=== PATIENT | female | born 1945 | race Caucasian/White ===

== ENCOUNTER 2018-02-26 09:38 | Inpatient (IN) | payer MEDICARE ==
--- NOTE | 2018-02-26 10:01 | Emergency Department Record ---
History of Present Illness - General Chief Complaint: Arrythmia/Palpitations Stated Complaint: SOB Time Seen by Provider: 02/26/18 09:54 Source: Patient Mode of Arrival: Ambulatory Limitations: No limitations - History of Present Illness Initial Comments: The patient is here due to progressively increasing SOB and LERMA for the last 2 weeks. She has been up [place] for the summer and was admitted to the hospital for CHF 2 months ago. She has been having worsening SOB during the summer and it has gotten very bad this last 2 weeks. There has been a cough with no sputum but no CP or chest discomfort. The patient did have an episode of new onset Afib this summer also and now is on Eliquis. She denies any leg pain, swelling, or fevers. Onset/Timin -: Week(s) Arrythmia History: Atrial fibrillation Associated Symptoms: Cough, Shortness of breath - Related Data Home Medications Medication Instructions Recorded Confirmed Last Taken Apixaban [Eliquis] 5 mg PO BID 02/26/18 02/26/18 1 Day Ago ~02/25/18 Aspirin [Aspirin EC] 81 mg PO DAILY 02/26/18 02/26/18 1 Day Ago ~02/25/18 Atorvastatin Calcium 20 mg PO DAILY 02/26/18 02/26/18 1 Day Ago ~02/25/18 B-Complex with Vitamin C [Super B 1 each PO DAILY 02/26/18 02/26/18 1 Day Ago Complex-Vitamin C] ~02/25/18 Cholecalciferol (Vitamin D3) 2,000 unit PO DAILY 02/26/18 02/26/18 1 Day Ago [Vitamin D3] ~02/25/18 Citalopram Hydrobromide 20 mg PO DAILY 02/26/18 02/26/18 1 Day Ago [Citalopram HBr] ~02/25/18 Diltiazem HCl [Diltiazem ER] 240 mg PO DAILY 02/26/18 02/26/18 1 Day Ago ~02/25/18 Fish Oil/Dha/Epa [Fish Oil 1,200 1 each PO DAILY 02/26/18 02/26/18 1 Day Ago mg Fish Oil] ~02/25/18 Furosemide [Lasix] 20 mg PO DAILY 02/26/18 02/26/18 1 Day Ago ~02/25/18 Lisinopril [Prinivil] 5 mg PO DAILY 02/26/18 02/26/18 1 Day Ago ~02/25/18 Metformin HCl [Metformin HCl ER] 500 mg PO DAILY 02/26/18 02/26/18 1 Day Ago ~02/25/18 Omeprazole 20 mg PO DAILY 02/26/18 02/26/18 1 Day Ago ~02/25/18 Sotalol HCl [Sotalol] 80 mg PO DAILY 02/26/18 02/26/18 1 Day Ago ~02/25/18 Turmeric/Turmeric Root Extract 1 each PO DAILY 02/26/18 02/26/18 1 Day Ago [Turmeric 450-50 mg Capsule] ~02/25/18 Allergies Allergy/AdvReac Type Severity Reaction Status Date / Time No Known Drug Allergies Allergy Verified 02/26/18 09:52 Travel Screening - Travel/Exposure Within Last 30 Days Have you traveled within the last 30 days?: No - Travel/Exposure Within Last Year Have you traveled outside the [place] in the last year?: No - Additonal Travel Details Have you been exposed to anyone with a communicable illness?: No - Travel Symptoms Symptom Screening: None Review of Systems Constitutional: Denies: Chills, Fever Eyes: Denies: Eye discharge ENT: Denies: Congestion Respiratory: Reports: Cough, Dyspnea. Denies: Hemoptysis, Stridor, Wheezes Cardiovascular: Reports: Dyspnea on exertion. Denies: Chest pain Endocrine: Denies: Fatigue Gastrointestinal: Denies: Diarrhea, Vomiting Musculoskeletal: Denies: Arthralgia Past Medical History - SOCIAL HISTORY Smoking Status: Former smoker Alcohol Use: None Drug Use: None - RESPIRATORY Hx Respiratory Disorders: Yes Hx COPD: Yes Hx Sleep Apnea: Yes Hx of CPAP: Yes - CARDIOVASCULAR Hx Cardio Disorders: Yes Hx Cardiac Cath: Yes Hx Chest Pain: Yes (2014 (pericarditis)->diltiazem) Hx Hypertension: Yes Hx Coronary Artery Disease: Yes Hx Coronary Stent: Yes () Comment:: high cholesterol, right sided HF, pumonary hypertension - NEURO Hx Neuro Disorders: Yes Hx TIA: Yes - GI Hx GI Disorders: Yes Hx Reflux: Yes (1 year (epigastric pain)) - Hx Genitourinary Disorders: No - ENDOCRINE Hx Endocrine Disorders: Yes - MUSCULOSKELETAL Hx Musculoskeletal Disorders: Yes Hx Arthritis: Yes - PSYCH Hx Psych Problems: Yes Hx Anxiety: Yes Hx Depression: Yes - HEMATOLOGY/ONCOLOGY Hx Hematology/Oncology Disorders: Yes Hx Cancer: Yes (cervical and skin) Hx Chemotherapy: No Hx Radiation Therapy: No Family Medical History Any Significant Family History?: Yes Hx Heart Disease: Father, Brother/Sister, Grandparents *Heart Comment: in early 50's, stents, AAA, valve replacement Hx HTN: Father, Brother/Sister, Grandparents Hx Stroke: Brother/Sister Physical Exam - General General Appearance: Alert, Oriented x3, Cooperative, No acute distress - Head Head exam: Atraumatic, Normocephalic, Normal inspection - Eye Eye exam: Normal appearance, PERRL, EOMI - ENT Throat exam: Normal inspection. negative: Tonsillar erythema, Tonsillar exudate - Neck Neck exam: Normal inspection, Full ROM. negative: Tenderness - Respiratory Respiratory exam: Normal lung sounds bilaterally. negative: Respiratory distress - Cardiovascular Cardiovascular Exam: Regular rate, Normal rhythm, Normal heart sounds - GI/Abdominal GI/Abdominal exam: Soft, Normal bowel sounds. negative: Tenderness - Extremities Extremities exam: Normal inspection, Full ROM, Normal capillary refill. negative: Calf tenderness, Pedal edema, Tenderness - Neurological Neurological exam: Alert, Normal gait. negative: Abnormal gait, Motor sensory deficit - Skin Skin exam: negative: Rash Course Vital Signs 02/26/18 09:40 Temperature 98.4 F Pulse Rate 68 Respiratory 32 H Rate Blood Pressure 149/65 Pulse Ox 91 L - Reevaluation(s) Reevaluation #1: The patient is doing better at this time. She denies any CP or SOB. I did explain the results of her tests to her and due to the fact the LERMA is so severe and she is significantly anemic I did recommend hospital admission and the patient agrees. I then did discuss the case with Dr. Jeffery and he does accept the admission. 02/26/18 11:02 Medical Decision Making - Data Complexity MDM Data: Labs Ordered and/or Reviewed, X-Ray Ordered and/or Reviewed, EKG Ordered and/or Reviewed - Lab Data Result diagrams: 02/26/18 10:07 02/26/18 10:07 - EKG Data -: EKG Interpreted by Me EKG: No Acute Changes, Normal EKG - Radiology Data Radiology results: Report reviewed (CXR: COPD with possibly mild CHF.) Disposition Disposition: Admit Clinical Impression: CHF (congestive heart failure) Qualifiers: Heart failure type: unspecified Heart failure chronicity: unspecified Qualified Code(s): I50.9 - Heart failure, unspecified Disposition: Still a Patient at [facility] Decision to Admit: Admit from ER Decision to Admit Date: 02/26/18 Decision to Admit Time: 11:05 Accepting Physician: Latia Time Discussed w/Accepting Physician: 11:05 Condition: (2) Stable Forms: Patient Portal Access Time of Disposition: 11:05 Quality - Quality Measures Quality Measures: N/A - Blood Pressure Screening View Details: Yes Does Patient Have Any of the Following: Active Dx of HTN Blood Pressure Classification: Hypertensive Reading Systolic Measurement: 149 Diastolic Measurement: 65 Screening for High Blood Pressure: Patient Exclusion, Hx of HTN [[id number]]
[2018-02-26 10:17] LABS: BASO % 0.3 % (0-6); EOS % 2.1 % (0-6); HEMATOCRIT 30.7 % (35.0-47.0); HEMOGLOBIN 9.1 gm/dl (11.6-16.0); LYMPH % 32.2 % (16-45); MEAN CORPUSCULAR HEMOGLOBIN 26.3 pg (27-33); MEAN CORPUSCULAR HGB CONC 29.6 g/dl (32-36); MEAN PLATELET VOLUME 8.9 fl (7.4-10.4); MONO % 9.4 % (0-9); PLATELET COUNT 315 K/uL (130-400); RED BLOOD COUNT 3.45 M/uL (3.80-5.40); RED CELL DISTRIBUTION WIDTH 15.2 % (11.5-14.5); WHITE BLOOD COUNT W/O DIFF 7.1 K/uL (4.2-12.2)
[2018-02-26 10:24] LABS: BLOOD UREA NITROGEN 14 mg/dL (8-23); CREATININE 0.7 mg/dL (0.5-0.9); EST GLOMERULAR FILTRATION RATE > 60 mL/min
[2018-02-26 10:25] LABS: INR 1.1; PARTIAL THROMBOPLASTIN TIME 31.3 SECONDS (24.5-39.1); PROTHROMBIN TIME (PATIENT) 10.7 SECONDS (9.5-12.1)
[2018-02-26 10:26] LABS: GLUCOSE,RANDOM 145 mg/dL (74-109)
[2018-02-26 10:29] LABS: CREATINE PHOSPHOKINASE 40 U/L (26-192)
[2018-02-26 10:31] LABS: CKMB < 1.0 ng/mL (<3.77)
[2018-02-26] MEDS ORDERED: FUROSEMIDE IV 40MG/4ML VIAL IVP ONE (10:49)
[2018-02-26] MEDS ORDERED: ALBUTEROL SULFATE (0.083%) 2.5 MG/3 ML NEB INH PRN (12:37)
--- NOTE | 2018-02-26 12:39 | History & Physical ---
History of Present Illness - Date of Service Date of Service for History & Physical: 02/26/18 - History of Present Illness Admitting Diagnosis: 1. Acute CHF with Anemia History of Present Illness: Mrs. Gonzalez is a 73 y/o female with recent diagnosis of atrial fibrillation s/p cardioversion, heart failure and COPD. The patient [place] and while there she became progressively short of breath and noticed some swelling in her legs. She says that she was admitted to a hospital for several days and was started on medication but she is not sure of all of them. The patient says that she has a history of COPD but had not been on medication for it. She has a 40 pack year smoking history and quit about 5 years ago. Since returning home over the weekend the patient says that she again became very short of breath, especially with exertion and she had some mild swelling of her legs. She says that she has diastolic heart failure and pulmonary hypertension based on the echo that was done several weeks ago. She presented to her PCPs office today and was reportedly in atrial fibrillation and sent to the ED. On arrival to [facility] ED the patient's chest xray does showed evidence of congestion and was found to have a hemoglobin of 9.1 but was not in atrial fibrillation on EKG. She denies chest pain, headache, cough, fever or chills. The patient is admitted for diuresis, repeat labs and further cardiac workup. Vitals on admission: BP: 124/69 HR: 66 RR: 22 T: 98.1 Sats: 98% on 2.5 liters nasal cannula PCP: Dr. Bruce Ca Travel Screening - Travel/Exposure Within Last 30 Days Have you traveled within the last 30 days?: No - Travel/Exposure Within Last Year Have you traveled outside the [place] in the last year?: No - Additonal Travel Details Have you been exposed to anyone with a communicable illness?: No - Travel Symptoms Symptom Screening: None Review of Systems Constitutional: Denies: Chills, Fever Eyes: Denies: Eye discharge ENT: Denies: Congestion Respiratory: Reports: Cough, Dyspnea. Denies: Hemoptysis, Stridor, Wheezes Cardiovascular: Reports: Dyspnea on exertion. Denies: Chest pain Endocrine: Denies: Fatigue Gastrointestinal: Denies: Diarrhea, Vomiting Musculoskeletal: Denies: Arthralgia Past Medical History - SOCIAL HISTORY Smoking Status: Former smoker Alcohol Use: None Drug Use: None - RESPIRATORY Hx Respiratory Disorders: Yes Hx COPD: Yes Hx Sleep Apnea: Yes Hx of CPAP: Yes - CARDIOVASCULAR Hx Cardio Disorders: Yes Hx Cardiac Cath: Yes Hx Chest Pain: Yes (2014 (pericarditis)->diltiazem) Hx Hypertension: Yes Hx Coronary Artery Disease: Yes Hx Coronary Stent: Yes (2008) Comment:: high cholesterol, right sided HF, pumonary hypertension - NEURO Hx Neuro Disorders: Yes Hx TIA: Yes - GI Hx GI Disorders: Yes Hx Reflux: Yes (1 year (epigastric pain)) - Hx Genitourinary Disorders: No - ENDOCRINE Hx Endocrine Disorders: Yes - MUSCULOSKELETAL Hx Musculoskeletal Disorders: Yes Hx Arthritis: Yes - PSYCH Hx Psych Problems: Yes Hx Anxiety: Yes Hx Depression: Yes - HEMATOLOGY/ONCOLOGY Hx Hematology/Oncology Disorders: Yes Hx Cancer: Yes (cervical and skin) Hx Chemotherapy: No Hx Radiation Therapy: No Family Medical History Any Significant Family History?: Yes Hx Heart Disease: Father, Brother/Sister, Grandparents *Heart Comment: in early 50's, stents, AAA, valve replacement Hx HTN: Father, Brother/Sister, Grandparents Hx Stroke: Brother/Sister H&P Meds/Allergies - Allergies Allergies: Allergies Allergy/AdvReac Type Severity Reaction Status Date / Time No Known Drug Allergies Allergy Verified 02/26/18 09:52 - Home Medications Home Medications Medication Instructions Recorded Confirmed Last Taken Albuterol Sulfate [Proair Hfa] 2 puff IH Q4H PRN 02/26/18 02/26/18 Unknown Apixaban [Eliquis] 5 mg PO BID 02/26/18 02/26/18 1 Day Ago ~02/25/18 Aspirin [Aspirin EC] 81 mg PO QHS 02/26/18 02/26/18 1 Day Ago ~02/25/18 Atorvastatin Calcium 20 mg PO DAILY 02/26/18 02/26/18 1 Day Ago ~02/25/18 B-Complex with Vitamin C [Super B 1 each PO DAILY 02/26/18 02/26/18 1 Day Ago Complex-Vitamin C] ~02/25/18 Cholecalciferol (Vitamin D3) 2,000 unit PO DAILY 02/26/18 02/26/18 1 Day Ago [Vitamin D3] ~02/25/18 Citalopram Hydrobromide 20 mg PO DAILY 02/26/18 02/26/18 1 Day Ago [Citalopram HBr] ~02/25/18 Diltiazem HCl [Diltiazem ER] 240 mg PO DAILY 02/26/18 02/26/18 1 Day Ago ~02/25/18 Fish Oil/Dha/Epa [Fish Oil 1,200 1 each PO DAILY 02/26/18 02/26/18 1 Day Ago mg Fish Oil] ~02/25/18 Furosemide [Lasix] 20 mg PO DAILY 02/26/18 02/26/18 1 Day Ago ~02/25/18 Lisinopril [Prinivil] 5 mg PO DAILY 02/26/18 02/26/18 1 Day Ago ~02/25/18 Metformin HCl 500 mg PO QHS 02/26/18 02/26/18 Unknown Omeprazole 20 mg PO DAILY 02/26/18 02/26/18 1 Day Ago ~02/25/18 Sotalol HCl [Sotalol] 80 mg PO BID 02/26/18 02/26/18 1 Day Ago ~02/25/18 Tiotropium [place] [Spiriva] 1 cap IH DAILY 02/26/18 02/26/18 Unknown Turmeric/Turmeric Root Extract 1 each PO DAILY 02/26/18 02/26/18 1 Day Ago [Turmeric 450-50 mg Capsule] ~02/25/18 - Active Medications Active Medications: Current Medications Albuterol Sulfate () 2.5 mg INH RESP.Q4H.WA PRN PRN Reason: DIFFICULTY IN BREATHING Aspirin (Ecotrin (Ec)) 81 mg PO DAILY [facility] Atorvastatin Calcium (Lipitor) 20 mg PO DAILY [facility] Citalopram Hydrobromide (Celexa) 20 mg PO DAILY [facility] Furosemide (Lasix Iv) 40 mg IVP DAILY [facility] Lisinopril (Zestril) 5 mg PO DAILY [facility] Non-Formulary Medication (Diltiazem Hcl [Diltiazem 24hr Er]) 240 mg PO DAILY [facility] Non-Formulary Medication (Metformin Hcl [Metformin Hcl Er]) 500 mg PO DAILY [facility] Non-Formulary Medication (Omeprazole [Omeprazole]) 20 mg PO DAILY [facility] Sotalol HCl (Betapace) 80 mg PO DAILY [facility] Physical Exam - Vital Signs Vital Signs: Vital Signs - Last 24 Hrs Temp Pulse Pulse Resp BP BP Pulse Ox 02/26/18 11:56 98.1 F 69 26 H 136/70 98 02/26/18 10:53 66 22 124/69 98 02/26/18 09:40 98.4 F 68 32 H 149/65 91 L - General General Appearance: Alert, Oriented x3, Cooperative, No acute distress Limitations: No limitations - Head Head exam: Atraumatic, Normocephalic, Normal inspection - Eye Eye exam: Normal appearance, PERRL, EOMI - ENT Throat exam: Normal inspection. negative: Tonsillar erythema, Tonsillar exudate - Neck Neck exam: Normal inspection, Full ROM. negative: Tenderness - Respiratory Respiratory exam: Normal lung sounds bilaterally, Other (coarse crackles). negative: Respiratory distress - Cardiovascular Cardiovascular Exam: Regular rate, Normal rhythm, Normal heart sounds Peripheral Pulses: 2+: Dorsalis Pedis (R), Dorsalis Pedis (L), 3+: Radial (R), Radial (L) - GI/Abdominal GI/Abdominal exam: Soft, Normal bowel sounds. negative: Tenderness - Extremities Extremities exam: Normal inspection, Full ROM, Normal capillary refill. negative: Calf tenderness, Pedal edema, Tenderness - Neurological Neurological exam: Alert, Normal gait. negative: Abnormal gait, Motor sensory deficit - Skin Skin exam: negative: Rash Results - Labs Result Diagrams: 02/26/18 10:07 02/26/18 10:07 Labs Last 24 Hours: Laboratory Results - last 24 hr 02/26/18 02/26/18 02/26/18 10:07 10:07 10:07 WBC 7.1 RBC 3.45 L Hgb 9.1 L Hct 30.7 L MCV 89.0 MCH 26.3 L MCHC 29.6 L RDW 15.2 H Plt Count 315 MPV 8.9 Gran % 56.0 Lymphocytes % 32.2 Monocytes % 9.4 H Eosinophils % 2.1 Basophils % 0.3 PT 10.7 INR 1.1 APTT 31.3 Sodium 141 Potassium 3.9 Chloride 101 Carbon Dioxide 27.0 Anion Gap 13.0 BUN 14 Creatinine 0.7 Estimated GFR > 60 Random Glucose 145 H Calcium 9.0 Creatine Kinase 40 CK-MB (CK-2) < 1.0 Troponin T < 0.010 NT-Pro-B Natriuret Pep 678.00 H TSH 0.90 VTE H&P Assessment - Risk for VTE Risk for VTE: Yes Risk Level: High Risk Assessment Date: 02/26/18 Risk Assessment Time: 18:06 VTE Orders Placed or Will Be Placed: No VTE Reason for No Prophylaxis: Complication of Medical Care Plan - Inpatient Certification Inpatient Certification: Admit to inpatient care: Based on my medical assessment, after consideration of patient's risk factors (age, co-morbidities and patient presenting symptoms and acuity), I expect that this patient will remain in the hospital greater than or equal to two midnights and that the services needed warrant inpatient care because: Patient Risk Factors: CHF, COPD exacerbation Estimated length of stay: 3 days The patient may reasonably be expected to be discharged or transferred to a hospital within 96 hours after admission to [facility]. I certify that my determination is in accordance with my understanding of Medicare requirements for reasonable and necessary inpatient services. 02/26/18 18:06 - Detailed Diagnosis and Plan (1) Acute exacerbation of CHF (congestive heart failure) Current Visit: Yes Status: Acute Base Code: I50.9 - HEART FAILURE, UNSPECIFIED Comment: 02/26/18: - CXR: indicative of some pulmonary vascular congestion. diastolic vs systolic? EF? - EKG: NSR, Qtc prolongation, no acute ST-T wave changes. - Pro T BNP: 678, Troponin 0.010, serial labs pending. - Resume Lisinopril 5mg daily, ASA81 mg daily, Atorvastatin 20mg, Lasix 40mg daily. - Repeat labs: BNP, CBC w/ diff, Lipid panel ordered. Fluid restriction 2 liters daily, Strict I/Os, Sodium restricted diet. - 2D echo ordered, Cardiology consult placed. (2) Anemia Current Visit: Yes Status: Acute Base Code: D64.9 - ANEMIA, UNSPECIFIED Comment: 02/26/18: - Acute v chronic? - Hgb 9.1, repeat CBC w/diff, fecal occult blood ordered. - Hold anticoagulants for now. - Last colonoscopy 2 years ago and pt reports normal findings. (3) A-fib Current Visit: Yes Status: Acute Base Code: I48.91 - UNSPECIFIED ATRIAL FIBRILLATION Comment: 02/26/18: - chronic atrial fibrillation s/p cardioversion. - currently on Sotalol 80mg BID, Cardizem 240mg daily, anticoagulated on Eliquis 5mg BID. - EKG: NSR w, rate approx 60, prolonged Qtc, no acute changes. Troponin x 1 negative, TSH 0.90 - cardiac monitoring, 2D echo ordered. Unable to obtain echo or records from most recent admission. - cardiology consult pending. (4) COPD (chronic obstructive pulmonary disease) Current Visit: Yes Status: Acute Base Code: J44.9 - CHRONIC OBSTRUCTIVE PULMONARY DISEASE, UNSPECIFIED Comment: 02/26/18: - 40 pk/yr hx of smoking, quit 5 years ago. - CXR: chronic changes, no opacities/infiltrates, small effusions bilaterally. - resume Spiriva daily, add Albuterol nebs Q4H PRN, oxygen to maintain sats > 92 %. - influenza vaccination required - recommend PFTs on discharge. (5) Diabetes mellitus, type II Current Visit: Yes Status: Acute Base Code: E11.9 - TYPE 2 DIABETES MELLITUS WITHOUT COMPLICATIONS Comment: : - Recent diagnosis - Continue Metformin 500mg, Atorvastatin 20mg QHS, Lisinopril 5mg QD - Repeat labs, accuchecks AcHs, Hba1c ordered - ADA diet ordered. (6) DVT prophylaxis Current Visit: Yes Status: Acute Base Code: [id number] - Comment: 02/26/18: - pt on Eliquis but will hold due to Hgb drop. - fecal occult blood testing pending. (7) Full code status Current Visit: Yes Status: Acute Base Code: Z78.9 - OTHER SPECIFIED HEALTH STATUS Comment: 02/26/18: - The patient is full code
--- NOTE | 2018-02-26 13:26 | RADIOLOGY REPORT ---
EXAM: CHEST, TWO VIEWS HISTORY: DIFFICULTY IN BREATHING. TECHNIQUE: Frontal and lateral views of the chest were performed. FINDINGS: The heart size is normal. Diffuse prominence of the pulmonary interstitium. Small pleural effusions. IMPRESSION: DIFFUSE PROMINENCE OF THE PULMONARY INTERSTITIUM. SMALL PLEURAL EFFUSIONS. JOB NUMBER: [id number] MTDD
[2018-02-26] MEDS: ACETAMINOPHEN 500 MG TABLET PO PRN ×2 (14:19→23:45)
[2018-02-26] MEDS: ASPIRIN 81 MG TABEC PO SCH (21:38)
[2018-02-26] MEDS: SOTALOL HCL 80 MG TABLET PO SCH (21:38)
[2018-02-26] MEDS: METFORMIN 500 MG TABLET PO SCH (21:39)
[2018-02-27 01:24] LABS: CKMB < 1.0 ng/mL (<3.77)
[2018-02-27] MEDS ORDERED: BREO (FLUTICASONE/VILANTEROL) 200MCG/25MCG INHALER INH SCH (06:00)
[2018-02-27] MEDS: PANTOPRAZOLE SODIUM 40 MG TABLET PO SCH (06:45)
[2018-02-27 06:55] LABS: BASO % 0.4 % (0-6); GRAN % 62.1 % (47-80); HEMATOCRIT 32.7 % (35.0-47.0); HEMOGLOBIN 9.6 gm/dl (11.6-16.0); LYMPH % 25.4 % (16-45); MEAN CELL VOLUME 89.3 fl (81-97); MEAN CORPUSCULAR HEMOGLOBIN 26.2 pg (27-33); MEAN CORPUSCULAR HGB CONC 29.4 g/dl (32-36); MEAN PLATELET VOLUME 9.4 fl (7.4-10.4); MONO % 9.1 % (0-9); PLATELET COUNT 355 K/uL (130-400); RED BLOOD COUNT 3.66 M/uL (3.80-5.40); RED CELL DISTRIBUTION WIDTH 15.1 % (11.5-14.5)
[2018-02-27 07:12] LABS: BLOOD UREA NITROGEN 16 mg/dL (8-23); CREATININE 0.6 mg/dL (0.5-0.9); EST GLOMERULAR FILTRATION RATE > 60 mL/min; GLUCOSE,RANDOM 115 mg/dL (74-109)
[2018-02-27] MEDS: CITALOPRAM 20 MG TABLET PO SCH (09:11)
[2018-02-27] MEDS: ATORVASTATIN 20 MG TABLET PO SCH (09:11)
[2018-02-27] MEDS: LISINOPRIL 5 MG TABLET PO SCH (09:11)
[2018-02-27] MEDS: SOTALOL HCL 80 MG TABLET PO SCH ×2 (09:11→21:22)
[2018-02-27] MEDS: DILTIAZEM 240 MG CAP CR PO SCH (09:18)
--- NOTE | 2018-02-27 09:51 | Physician Progress Note ---
Subjective - Date Date of Physician Progress Note: 02/27/18 - Subjective Subjective Comment: The patient is alert, awake and oriented. She still complains of shortness of breath on exertion this morning. Objective - Vital Signs Vital Signs: Vital Signs - Last 24 Hrs Temp Pulse Pulse Resp BP Pulse Ox 02/27/18 09:00 68 18 02/27/18 08:00 98.1 F 68 18 135/78 95 02/27/18 06:00 97.9 F 85 22 129/84 95 02/27/18 00:03 81 20 95 02/26/18 21:00 87 20 02/26/18 20:00 97.6 F 70 20 127/68 95 02/26/18 17:05 98.2 F 72 18 145/77 99 02/26/18 15:15 72 L 02/26/18 14:25 80 16 02/26/18 12:15 98.1 F 69 22 148/69 95 02/26/18 11:56 98.1 F 69 26 H 136/70 98 02/26/18 10:53 66 22 124/69 98 - General General Appearance: Alert, Oriented x3, Cooperative, No acute distress Limitations: No limitations - Head Head exam: Atraumatic, Normocephalic, Normal inspection - Eye Eye exam: Normal appearance, PERRL, EOMI - ENT Throat exam: Normal inspection. negative: Tonsillar erythema, Tonsillar exudate - Neck Neck exam: Normal inspection, Full ROM. negative: Tenderness - Respiratory Respiratory exam: Normal lung sounds bilaterally, Other (diminished breaths at the bases, no crackles this morning. ). negative: Respiratory distress - Cardiovascular Cardiovascular Exam: Regular rate, Normal rhythm, Normal heart sounds Peripheral Pulses: 2+: Dorsalis Pedis (R), Dorsalis Pedis (L), 3+: Radial (R), Radial (L) - GI/Abdominal GI/Abdominal exam: Soft, Normal bowel sounds. negative: Tenderness - Extremities Extremities exam: Normal inspection, Full ROM, Normal capillary refill. negative: Calf tenderness, Pedal edema, Tenderness - Neurological Neurological exam: Alert, Normal gait. negative: Abnormal gait, Motor sensory deficit - Skin Skin exam: negative: Rash Assessment and Plan - Assessment and Plan (1) Acute exacerbation of CHF (congestive heart failure) Current Visit: Yes Status: Acute Base Code: I50.9 - HEART FAILURE, UNSPECIFIED Comment: 02/27/18: - CXR: indicative of some pulmonary vascular congestion. diastolic vs systolic? EF? - EKG: NSR, Qtc prolongation, no acute ST-T wave changes. - Pro T BNP: 678, Troponin negative x 2, - Resume Lisinopril 5mg daily, ASA81 mg daily, Atorvastatin 20mg, Lasix 40mg daily. - Repeat labs: BNP, CBC w/ diff, Lipid panel ordered. Fluid restriction 2 liters daily, Strict I/Os, Sodium restricted diet. - 2D echo ordered, Cardiology consult pending. Requesting records from [facility]. (2) Anemia Current Visit: Yes Status: Acute Base Code: D64.9 - ANEMIA, UNSPECIFIED Comment: 02/27/18: - Acute v chronic? - Hgb 9.1-->9.6, repeat CBC w/diff, fecal occult blood ordered. - Hold anticoagulants for now. - Last colonoscopy 2 years ago and pt reports normal findings. (3) A-fib Current Visit: Yes Status: Acute Base Code: I48.91 - UNSPECIFIED ATRIAL FIBRILLATION Comment: 02/26/18: - chronic atrial fibrillation s/p cardioversion. - currently on Sotalol 80mg BID, Cardizem 240mg daily, anticoagulated on Eliquis 5mg BID. - EKG: NSR w, rate approx 60, prolonged Qtc, no acute changes. Troponin x 1 negative, TSH 0.90 - cardiac monitoring, 2D echo ordered. Unable to obtain echo or records from most recent admission. - cardiology consult pending. (4) COPD (chronic obstructive pulmonary disease) Current Visit: Yes Status: Acute Base Code: J44.9 - CHRONIC OBSTRUCTIVE PULMONARY DISEASE, UNSPECIFIED Comment: 02/27/18: - 40 pk/yr hx of smoking, quit 5 years ago. - CXR: chronic changes, no opacities/infiltrates, small effusions bilaterally. - resume Spiriva daily, add Albuterol nebs Q4H PRN, oxygen to maintain sats > 92 %. - influenza vaccination given. - recommend PFTs on discharge. (5) Diabetes mellitus, type II Current Visit: Yes Status: Acute Base Code: E11.9 - TYPE 2 DIABETES MELLITUS WITHOUT COMPLICATIONS Comment: : - Recent diagnosis - Continue Metformin 500mg, Atorvastatin 20mg QHS, Lisinopril 5mg QD - Repeat labs, accuchecks AcHs, Hba1c 6.1% - ADA diet ordered. (6) DVT prophylaxis Current Visit: Yes Status: Acute Base Code: [id number] - Comment: 02/27/18: - pt on Eliquis but will hold due to Hgb drop. - fecal occult blood testing pending. (7) Full code status Current Visit: Yes Status: Acute Base Code: Z78.9 - OTHER SPECIFIED HEALTH STATUS Comment: 02/27/18: - The patient is full code - Disposition Disposition: Pending Cardiology consult Results - Labs Result Diagrams: 02/27/18 06:13 02/27/18 06:13 Labs Last 24 Hours: Laboratory Results - last 24 hr 02/26/18 02/26/18 02/26/18 10:07 10:07 10:07 WBC 7.1 RBC 3.45 L Hgb 9.1 L Hct 30.7 L MCV 89.0 MCH 26.3 L MCHC 29.6 L RDW 15.2 H Plt Count 315 MPV 8.9 Gran % 56.0 Lymphocytes % 32.2 Monocytes % 9.4 H Eosinophils % 2.1 Basophils % 0.3 PT 10.7 INR 1.1 APTT 31.3 Sodium 141 Potassium 3.9 Chloride 101 Carbon Dioxide 27.0 Anion Gap 13.0 BUN 14 Creatinine 0.7 Estimated GFR > 60 Random Glucose 145 H Hemoglobin A1c Calcium 9.0 Creatine Kinase 40 CK-MB (CK-2) < 1.0 Troponin T < 0.010 NT-Pro-B Natriuret Pep 678.00 H Triglycerides Cholesterol LDL Cholesterol [place] VLDL Cholesterol HDL Cholesterol TSH 0.90 02/26/18 02/26/18 02/27/18 17:19 17:19 00:58 WBC RBC Hgb Hct MCV MCH MCHC RDW Plt Count MPV Gran % Lymphocytes % Monocytes % Eosinophils % Basophils % PT INR APTT Sodium Potassium Chloride Carbon Dioxide Anion Gap BUN Creatinine Estimated GFR Random Glucose Hemoglobin A1c Calcium Creatine Kinase CK-MB (CK-2) < 1.0 < 1.0 Troponin T < 0.010 < 0.010 NT-Pro-B Natriuret Pep Triglycerides Cholesterol LDL Cholesterol [place] VLDL Cholesterol HDL Cholesterol TSH 02/27/18 02/27/18 02/27/18 01:00 06:13 06:13 WBC 8.0 RBC 3.66 L Hgb 9.6 L Hct 32.7 L MCV 89.3 MCH 26.2 L MCHC 29.4 L RDW 15.1 H Plt Count 355 MPV 9.4 Gran % 62.1 Lymphocytes % 25.4 Monocytes % 9.1 H Eosinophils % 3.0 Basophils % 0.4 PT INR APTT Sodium 142 Potassium 4.2 Chloride 101 Carbon Dioxide 29.0 Anion Gap 12.0 BUN 16 Creatinine 0.6 Estimated GFR > 60 Random Glucose 115 H Hemoglobin A1c Calcium 9.3 Creatine Kinase CK-MB (CK-2) Troponin T Cancelled NT-Pro-B Natriuret Pep Triglycerides Cholesterol LDL Cholesterol [place] VLDL Cholesterol HDL Cholesterol TSH 02/27/18 02/27/18 06:13 06:13 WBC RBC Hgb Hct MCV MCH MCHC RDW Plt Count MPV Gran % Lymphocytes % Monocytes % Eosinophils % Basophils % PT INR APTT Sodium Potassium Chloride Carbon Dioxide Anion Gap BUN Creatinine Estimated GFR Random Glucose Hemoglobin A1c 6.10 H Calcium Creatine Kinase CK-MB (CK-2) Troponin T NT-Pro-B Natriuret Pep Triglycerides 141 Cholesterol 136 LDL Cholesterol [place] 78.0 VLDL Cholesterol 28 HDL Cholesterol 45 TSH DVT/PE Assessment - Risk for VTE Risk for VTE: No Risk Level: High Risk Assessment Date: 02/26/18 Risk Assessment Time: 18:06 VTE Orders Placed or Will Be Placed: No VTE Reason for No Prophylaxis: Complication of Medical Care - Active Medicaitons Current Medications: Current Medications Acetaminophen (Tylenol 500mg Tab) 1,000 mg PO Q8H PRN PRN Reason: PAIN - MILD TO MODERATE (1-7) Last Admin: 02/26/18 23:45 Dose: 1,000 mg Albuterol Sulfate () 2.5 mg INH RESP.Q4H.WA PRN PRN Reason: DIFFICULTY IN BREATHING Last Admin: 02/27/18 00:01 Dose: 2.5 mg Aspirin (Ecotrin (Ec)) 81 mg PO QHS [facility] Last Admin: 02/26/18 21:38 Dose: 81 mg Atorvastatin Calcium (Lipitor) 20 mg PO DAILY [facility] Last Admin: 02/27/18 09:11 Dose: 20 mg Citalopram Hydrobromide (Celexa) 20 mg PO DAILY [facility] Last Admin: 02/27/18 09:11 Dose: 20 mg Diltiazem HCl (Cardizem Cd) 240 mg PO DAILY [facility] Last Admin: 02/27/18 09:18 Dose: 240 mg Furosemide (Lasix Iv) 40 mg IVP DAILY [facility] Last Admin: 02/27/18 09:11 Dose: 40 mg Lisinopril (Zestril) 5 mg PO DAILY [facility] Last Admin: 02/27/18 09:11 Dose: 5 mg Metformin HCl (Glucophage Ir) 500 mg PO QHS [facility] Last Admin: 02/26/18 21:39 Dose: 500 mg Pantoprazole Sodium (Protonix) 40 mg PO DAILYAC [facility] Last Admin: 02/27/18 06:45 Dose: 40 mg Sotalol HCl (Betapace) 80 mg PO BID [facility] Last Admin: 02/27/18 09:11 Dose: 80 mg AMI Plan - Labs Result Diagrams: 02/27/18 06:13 02/27/18 06:13
[2018-02-27] MEDS: UMECLIDINIUM BROMIDE (INCRUSE) 62.5MCG IH SCH (09:55)
[2018-02-27] MEDS ORDERED: FUROSEMIDE IV 40MG/4ML VIAL IVP SCH (10:00)
[2018-02-27] MEDS ORDERED: SOTALOL HCL 80 MG TABLET PO SCH (10:00)
--- NOTE | 2018-02-27 12:08 | Physician Addendum ---
Addendum (Physician) Reviewed documentation from [facility] which indicate that the patient as diastolic heart failure with preserved EF of 65%, moderate mitral regurgitation, moderate right atrial dilatation and pulmonary hypertension on SILVIA. She underwent cardioversion x 2, left heart cath which showed mild disease with 30% stenosis in both the LAD and and circumflex arteries. For further perusal of the records please see the patient's physical chart. 02/27/18 12:04
[2018-02-27] MEDS: METFORMIN 500 MG TABLET PO SCH (21:22)
[2018-02-27] MEDS: ASPIRIN 81 MG TABEC PO SCH (21:22)
[2018-02-28] MEDS: PANTOPRAZOLE SODIUM 40 MG TABLET PO SCH (06:06)
[2018-02-28 06:48] LABS: BLOOD UREA NITROGEN 18 mg/dL (8-23); CREATININE 0.7 mg/dL (0.5-0.9); EST GLOMERULAR FILTRATION RATE > 60 mL/min; GLUCOSE,RANDOM 111 mg/dL (74-109)
[2018-02-28 09:37] LABS: HEMATOCRIT 31.9 % (35.0-47.0); HEMOGLOBIN 9.4 gm/dl (11.6-16.0)
[2018-02-28] MEDS: UMECLIDINIUM BROMIDE (INCRUSE) 62.5MCG IH SCH (09:53)
[2018-02-28] MEDS ORDERED: FUROSEMIDE 40 MG TABLET PO SCH (10:00)
--- NOTE | 2018-02-28 10:30 | Discharge Summary ---
Providers Discharge Summary Date: 02/28/18 Date of admission: 02/26/18 12:18 Attending physician: ADAN ISLAS Primary care physician: BERNADETTE CA D.O. 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 Physical Exam - Vital Signs Vital Signs: Vital Signs - Last 24 Hrs Temp Pulse Pulse Resp BP Pulse Ox 02/28/18 09:58 68 18 98 02/28/18 07:24 97.5 F L 59 L 18 127/62 92 L 02/27/18 20:30 97.7 F 61 12 117/61 92 L 02/27/18 16:00 98.2 F 69 22 126/69 94 L 02/27/18 12:00 98.7 F 65 20 115/58 94 L - General General Appearance: Alert, Oriented x3, Cooperative, No acute distress Limitations: No limitations - Head Head exam: Atraumatic, Normocephalic, Normal inspection - Eye Eye exam: Normal appearance, PERRL, EOMI - ENT Throat exam: Normal inspection. negative: Tonsillar erythema, Tonsillar exudate - Neck Neck exam: Normal inspection, Full ROM. negative: Tenderness - Respiratory Respiratory exam: Normal lung sounds bilaterally, Other (diminished breaths at the bases, no crackles this morning. ). negative: Respiratory distress - Cardiovascular Cardiovascular Exam: Regular rate, Normal rhythm, Normal heart sounds Peripheral Pulses: 2+: Dorsalis Pedis (R), Dorsalis Pedis (L), 3+: Radial (R), Radial (L) - GI/Abdominal GI/Abdominal exam: Soft, Normal bowel sounds. negative: Tenderness - Extremities Extremities exam: Normal inspection, Full ROM, Normal capillary refill. negative: Calf tenderness, Pedal edema, Tenderness - Neurological Neurological exam: Alert, Normal gait. negative: Abnormal gait, Motor sensory deficit - Skin Skin exam: negative: Rash Hospitalization - Hospitalization Admission Diagnosis: 1. Acute CHF with Anemia - Problem List/Discharge Diagnosis (1) Acute exacerbation of CHF (congestive heart failure) Current Visit: Yes Status: Acute Base Code: I50.9 - HEART FAILURE, UNSPECIFIED Comment: 02/28/18: - CXR: indicative of some pulmonary vascular congestion. diastolic vs systolic? EF? - EKG: NSR, Qtc prolongation, no acute ST-T wave changes. - Troponin negative x 3 - Cont Lisinopril 5mg daily, ASA81 mg daily, Atorvastatin 20mg, Lasix 40mg daily. - Repeat labs: BNP wnl , H+H stable Fluid restriction 2 liters daily, Strict I/ Os, Sodium restricted diet. - Echo from 01/2018: showed diastolic HF, EF 65%. -Cardiology recommending increase in Lasix to 40mg daily. Outpatient follow up with Dr. Newman in 1 week. (2) Anemia Current Visit: Yes Status: Acute Base Code: D64.9 - ANEMIA, UNSPECIFIED Comment: 02/28/18: - Acute v chronic? - Hgb 9.1-->9.6--> 9.4 stable - Unable to obtain FOBT since pt has not had any bowel movements. Pt to go home with lab kit for stool sample. - Resume anticoagulation with Eliquis. - Last colonoscopy 2 years ago and pt reports normal findings. (3) A-fib Current Visit: Yes Status: Acute Base Code: I48.91 - UNSPECIFIED ATRIAL FIBRILLATION Comment: 02/28/18: - chronic atrial fibrillation s/p cardioversion. [id number]: 3-4 based on age, sex,CHF - currently on Sotalol 80mg BID, Cardizem 240mg daily, anticoagulated on Eliquis 5mg BID. - EKG: NSR w, rate approx 60, prolonged Qtc, no acute changes. 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 No valvulopathy on echo. (4) COPD (chronic obstructive pulmonary disease) Current Visit: Yes Status: Acute Base Code: J44.9 - CHRONIC OBSTRUCTIVE PULMONARY DISEASE, UNSPECIFIED Comment: 02/28/18: - 40 pk/yr hx of smoking, quit 5 years ago. - CXR: chronic changes, no opacities/infiltrates, small effusions bilaterally. - resume Spiriva daily, add Albuterol nebs Q4H PRN, oxygen to maintain sats > 92 %. - influenza vaccination given. - recommend PFTs on discharge. (5) Diabetes mellitus, type II Current Visit: Yes Status: Acute Base Code: E11.9 - TYPE 2 DIABETES MELLITUS WITHOUT COMPLICATIONS Comment: : - Recent diagnosis of prediabetes. Started on Metformin 500mg ER QD - Continue Metformin 500mg, Atorvastatin 20mg QHS, Lisinopril 5mg QD - Repeat labs, accuchecks AcHs, Hba1c 6.1% - ADA diet ordered. (6) DVT prophylaxis Current Visit: Yes Status: Acute Base Code: [id number] - Comment: 02/28/18: - pt on Eliquis but will hold due to Hgb drop. - fecal occult blood testing pending. (7) Full code status Current Visit: Yes Status: Acute Base Code: Z78.9 - OTHER SPECIFIED HEALTH STATUS Comment: 02/28/18: - The patient is full code - Disposition Pending Cardiology consult - Hospitalization Course Disposition: Home, Self-Care Hospital Course: Mrs. Gonzalez is a 73 y/o female with recent diagnosis of atrial fibrillation s/p cardioversion, heart failure and COPD. The patient says [place] and while there she became progressively short of breath and noticed some swelling in her legs. She says that she was admitted to a hospital for several days and was started on medication but she is not sure of all of them. The patient says that she has a history of COPD but had not been on medication for it. She has a 40 pack year smoking history and quit about 5 years ago. Since returning home over the weekend the patient says that she again became very short of breath, especially with exertion and she had some mild swelling of her legs. She says that she has diastolic heart failure and pulmonary hypertension based on the echo that was done several weeks ago. She presented to her PCPs office today and was reportedly in atrial fibrillation and sent to the ED. On arrival to [facility] ED the patient's chest xray does showed evidence of congestion and was found to have a hemoglobin of 9.1 but was not in atrial fibrillation on EKG. She denies chest pain, headache, cough, fever or chills. The patient is admitted for diuresis, repeat labs and further cardiac workup. : The patient showed gradual improvement in symptoms over the past 48 hours with IV diuresis. She has been able to maintain oxygen saturations > than 92% on 2 liters supplemental oxygen which she will require at home. There were no acute arrhythmic events and the patient has not been in atrial fibrillation on since admission. On examination this morning she is alert, awake and oriented x 3 with no new complaints at this time. Vitals on admission: BP: 124/69 HR: 66 RR: 22 T: 98.1 Sats: 98% on 2.5 liters nasal cannula PCP: Dr. Bernadette Ca Procedures: Imaging and X-Rays 02/26/18 10:02 CHEST 2 VIEWS [RAD] Stat Cardiology Procedures 02/26/18 10:02 Slubber Machine Operator NOW EKG NOW 02/26/18 12:32 Slubber Machine Operator .Continuous EKG QDX2@0600 02/26/18 18:37 Echo W/CF & Cardiac Doppler ONCE Abnormal Labs: Abnormal Lab Results 02/26/18 02/26/18 02/27/18 Range/Units 10:07 10:07 06:13 RBC 3.45 L 3.66 L (3.80-5.40) M/uL Hgb 9.1 L 9.6 L (11.6-16.0) gm/dl Hct 30.7 L 32.7 L (35.0-47.0) % MCH 26.3 L 26.2 L (27-33) pg MCHC 29.6 L 29.4 L (32-36) g/dl RDW 15.2 H 15.1 H (11.5-14.5) % Monocytes % 9.4 H 9.1 H (0-9) % Chloride (98-107) mmol/L POC Glucose (70-110) mg/dL Random Glucose 145 H (74-109) mg/dL Hemoglobin A1c (4.0-6.00) % NT-Pro-B Natriuret Pep 678.00 H (<125) pg/mL 02/27/18 02/27/18 02/27/18 Range/Units 06:13 06:13 20:45 RBC (3.80-5.40) M/uL Hgb (11.6-16.0) gm/dl Hct (35.0-47.0) % MCH (27-33) pg MCHC (32-36) g/dl RDW (11.5-14.5) % Monocytes % (0-9) % Chloride (98-107) mmol/L POC Glucose 118 H (70-110) mg/dL Random Glucose 115 H (74-109) mg/dL Hemoglobin A1c 6.10 H (4.0-6.00) % NT-Pro-B Natriuret Pep (<125) pg/mL 02/28/18 02/28/18 Range/Units 06:15 06:15 RBC (3.80-5.40) M/uL Hgb 9.4 L (11.6-16.0) gm/dl Hct 31.9 L (35.0-47.0) % MCH (27-33) pg MCHC (32-36) g/dl RDW (11.5-14.5) % Monocytes % (0-9) % Chloride 97 L (98-107) mmol/L POC Glucose (70-110) mg/dL Random Glucose 111 H (74-109) mg/dL Hemoglobin A1c (4.0-6.00) % NT-Pro-B Natriuret Pep (<125) pg/mL Condition at Discharge: (2) Stable Discharge Medications - Discharge Medications Prescriptions: Furosemide [Lasix] 40 mg PO DAILY #30 tablet Tiotropium [place] [Spiriva] 1 cap IH DAILY #1 cap.w.dev Home Medications: Ambulatory Orders Albuterol Sulfate [Proair Hfa] 2 puff IH Q4H PRN 02/26/18 [Last Taken Unknown] Apixaban [Eliquis] 5 mg PO BID 02/26/18 [Last Taken 1 Day Ago ~02/25/18] Aspirin [Aspirin EC] 81 mg PO QHS 02/26/18 [Last Taken 1 Day Ago ~02/25/18] Atorvastatin Calcium 20 mg PO DAILY 02/26/18 [Last Taken 1 Day Ago ~02/25/18] B-Complex with Vitamin C [Super B Complex-Vitamin C] 1 each PO DAILY 02/26/18 [ Last Taken 1 Day Ago ~02/25/18] Cholecalciferol (Vitamin D3) [Vitamin D3] 2,000 unit PO DAILY 02/26/18 [Last Taken 1 Day Ago ~02/25/18] Citalopram Hydrobromide [Citalopram HBr] 20 mg PO DAILY 02/26/18 [Last Taken 1 Day Ago ~02/25/18] Diltiazem HCl [Diltiazem 24Hr ER] 240 mg PO DAILY 02/26/18 [Last Taken 1 Day Ago ~02/25/18] Fish Oil/Dha/Epa [Fish Oil 1,200 mg Fish Oil] 1 each PO DAILY 02/26/18 [Last Taken 1 Day Ago ~02/25/18] Lisinopril [Prinivil] 5 mg PO DAILY 02/26/18 [Last Taken 1 Day Ago ~02/25/18] Metformin HCl 500 mg PO QHS 02/26/18 [Last Taken Unknown] Omeprazole 20 mg PO DAILY 02/26/18 [Last Taken 1 Day Ago ~02/25/18] Sotalol HCl [Sotalol] 80 mg PO BID 02/26/18 [Last Taken 1 Day Ago ~02/25/18] Turmeric/Turmeric Root Extract [Turmeric 450-50 mg Capsule] 1 each PO DAILY [Last Taken 1 Day Ago ~02/25/18] Acetaminophen [Tylenol 500Mg Tab] 1,000 mg PO Q8H PRN tablet 02/28/18 [Last Taken Unknown] Furosemide [Lasix] 40 mg PO DAILY #30 tablet 02/28/18 [Last Taken Unknown] Metformin HCl [Glucophage Ir] 500 mg PO QHS tablet 02/28/18 [Last Taken Unknown ] Sotalol HCl [Betapace] 80 mg PO BID tablet 02/28/18 [Last Taken Unknown] Tiotropium [place] [Spiriva] 1 cap IH DAILY #1 cap.w.dev 02/28/18 [Last Taken Unknown] Discharge Plan - Discharge Instructions Activity at Discharge: Resume Usual Activities As Tolerated Diet at Discharge: Low Fat, Low Cholesterol Additional Instructions: Please resume taking your medication for your heart failure and a fib as prescribed. We discussed the risk vs benefits of using Eliquis and the concern for gastrointestinal bleed. Please use the sample cup provided and return to the lab within 2-3 days of discharge. Your Lasix dose has been increased to 40mg daily as recommended by Cardiology. Use your portable oxygen at all times and continue with daily use of Spiriva. Please follow up with Dr. Newman on Mar 14 as scheduled for further evaluation and recommendation. Please have medical records from recent admission with you for them to go over. Make an appointment with your PCP, Dr. Ca to be seen within the next 5-7 days. If you have any chest pain, return of shortness of breath please return to the nearest ED. Quality Measures - Quality Measures Quality Measures: Atrial Fibrillation & Atrial Flutter: Chronic Anticoagulation Therapy, Advance Directives, Documentation of Current Medications in Medical Record, Elder Maltreatment Screen and Follow-Up Plan, Heart Failure, Screening for High Blood Pressure and F/U Documented - Current Medications Quality Measure: Measure #130: Documentation of Current Medications Documentation of Current Medications: <Current Medications Documented/Reviewed> [G8427] - Blood Pressure Screening Quality Measure: Screening for High Blood Pressure and Follow-Up Documented Does Patient Have Any of the Following: Active Dx of HTN Blood Pressure Classification: Hypertensive Reading Systolic Measurement: 149 Diastolic Measurement: 65 Screening for High Blood Pressure: Patient Exclusion, Hx of HTN [G9744] - Atrial Fibrillation and Atrial Flutter Quality Measure: Atrial Fibrillation & Atrial Flutter: Chronic Anticoagulation Therapy Does Patient Have Any of the Following: No CHADS2 Risk Stratification: Prior Stroke/TIA or Systemic Embolism, Hypertension Risk Stratification Summary: One or more high risk factors OR more than one moderate risk factor exists. [G8972] Anticoagulation Therapy: <Oral anticoagulant Prescribed> [G8967] - Heart Failure (ROCIO/ARB Therapy) Quality Measure: Heart Failure Left Ventricular Systolic Function: Unknown (Preserved EF of 65% ) ROCIO Inhibitor or ARB Therapy for LVSD: Not Eligible - Heart Failure (Beta-maru Therapy) Quality Measure: Heart Failure Left Ventricular Systolic Function: Unknown Beta-Maru Therapy for LVEF < 40%: <Beta-Maru Therapy Prescribed> [G8450] - Advance Directives Quality Measure: Measure #47: Care Plan Advance Directives Established: No Advance Directives Information Provided To Patient: Declined Advance Directives on File: No Living Will: No Power of Piercing Machine Operator: No Advance Care Planning: <Care Plan/Decision Maker Documented; Discussed & Documented> [[id number]] - Elder Abuse Suspicion Index Screening: Elder Abuse Suspicion Index Screening Rely on people for bathing, dressing, shopping, banking, etc: No Prevented from getting food, clothes, medication, etc: No Made to feel shamed or threatened by someone: No Forced to sign papers or use money against will: No Feel afraid, touched in ways not wanted or hurt physically: No Poor eye contact, withdrawn, malnourished, cuts or bruises: No Screening Result: Negative result EASI Reference Information: Juliet RAMEY, Wolf C, Kristie D, Vanesa Yip.Development and validation of a tool to assist physicians identification of elder abuse: The Elder Abuse Suspicion Index (EASI ). Journal of Elder Abuse and Neglect, 2008; 20 (3): 276-300. - Elder Maltreatment Screen Quality Measures: Elder Maltreatment Screen and Follow-Up Plan Elder Maltreatment Screen: <Negative, No Follow-Up Plan Required> [G8734]
[2018-02-28] MEDS: SOTALOL HCL 80 MG TABLET PO SCH (10:31)
[2018-02-28] MEDS: DILTIAZEM 240 MG CAP CR PO SCH (10:31)
[2018-02-28] MEDS: LISINOPRIL 5 MG TABLET PO SCH (10:32)
[2018-02-28] MEDS: CITALOPRAM 20 MG TABLET PO SCH (10:32)
[2018-02-28] MEDS: ATORVASTATIN 20 MG TABLET PO SCH (10:32)
--- NOTE | 2018-03-01 22:55 | Cardiology Consult ---
DATE OF CONSULTATION: 02/27/2018 REASON FOR CONSULTATION: SHORTNESS OF BREATH. HISTORY OF PRESENT ILLNESS: Ms. Gonzalez is a pleasant 73-year-old female with a history of paroxysmal atrial fibrillation, coronary artery disease status post PCI/stent placement to the RCA in 2005, diastolic CHF, and COPD, who presented to [facility] yesterday with complaints of increasing shortness of breath. She reports shortness of breath ongoing for the past few years but worse this past summer. She was up [place] this summer and was hospitalized at [facility] twice. First admission was for acute diastolic CHF and the second admission was for newly diagnosed atrial fibrillation, for which she underwent successful SILVIA cardioversion. She also had a cardiac catheterization performed during one of these hospitalizations, which showed a patent RCA stem and 30% stenosis of the LAD and left circumflex artery, no intervention was performed. She was started on Eliquis 5 mg b.i.d. for anticoagulation along with Sotalol 80 mg b.i.d., Cardizem CD 240 mg daily was continued. This past weekend, she reports her shortness of breath was acutely worse. She also noticed some lower extremity edema and orthopnea. She has noticed some chest tightness as well. Her shortness of breath is worsened with exertion and she was unable to walk to her bathroom at home without becoming short of breath. She also reports recent fevers, chills, myalgias, and coughing over the weekend as well. Her chest x-ray showed small bilateral pleural effusions. She was found to be anemic with hemoglobin 9.6. Previous hemoglobin at the beginning of January, at [facility] was around 11.8. Cardiac enzymes negative x3. proBNP 678. Blood pressure, heart rate are stable. She is overall feeling better after receiving IV Lasix 40 mg. EKG shows normal sinus rhythm. She underwent echocardiogram while admitted, which showed preserved LV function, EF 60 to 65%, and grade 3 diastolic dysfunction, mild right ventricular enlargement with normal function, moderate AR, mild to moderate TR and RVSP of 71 mmHg. Her Eliquis has been held while admitted due to anemia. PAST MEDICAL HISTORY: 1. Paroxysmal atrial fibrillation. 2. Chronic diastolic heart failure. 3. COPD. 4. Coronary artery disease. 5. Hypertension. 6. Hyperlipidemia. 7. Type II diabetes mellitus. 8. Obstructive sleep apnea. MEDICATION ALLERGIES: NO KNOWN DRUG ALLERGIES. FAMILY HISTORY: Her father and siblings have a history of heart disease. SOCIAL HISTORY: She is a former smoker, quitting five years ago with an approximate 40 to 50 pack year history. Denies alcohol and illicit drug use. CARDIAC MEDICATIONS: 1. Aspirin 81 mg daily. 2. Atorvastatin 20 mg daily. 3. Cardizem CD 240 mg daily. 4. Lasix IV 40 mg once daily. 5. Lisinopril 5 mg daily. 6. Sotalol 80 mg daily. MEDICATIONS: She is on: 1. Eliquis 5 mg b.i.d., currently held. 2. Oral Lasix 20 mg daily as an outpatient. REVIEW OF SYSTEMS: Positive for fevers, chills, shortness of breath, chest tightness, peripheral edema, orthopnea, palpitations. Denies abdominal pain, nausea, vomiting, hematuria, hematochezia, headache, visual changes. OBJECTIVE: Blood pressure 135/78. Pulse 68. Respirations 16. Temperature 98.1. 95% on 2 liters. LABS: WBC 8. Hemoglobin 9.6. Platelets 355. Sodium 142. Potassium 4.2. BUN 16. Creatinine 0.6. Glucose 115. Troponin negative x3. Hemoglobin A1C 6.1. TSH within normal limits. proBNP 678. ECHOCARDIOGRAM 02/27/18: Showed EF 60 to 65%, grade 2 diastolic dysfunction, mild RV enlargement with normal function, moderate AR, mild to moderate TR, RVSP 71 mmHg. EKG: Shows normal sinus rhythm. PHYSICAL EXAMINATION: GENERAL: Alert and oriented x3, in no acute distress. HEENT: Normocephalic, atraumatic. Pupils are equal, round, and reactive to light. CARDIAC: Regular rate and rhythm. Plus S1 and S2. No murmur is appreciated. LUNGS: Clear to auscultation bilaterally with no wheezing or crackles. ABDOMEN: Soft, nontender with active bowel sounds. EXTREMITIES: Trace bilateral pitting edema with 2+ radial and pedal pulses. NEURO: Cranial nerves II through XII are grossly intact. ASSESSMENT: 1. SHORTNESS OF BREATH: Multifactorial secondary to diastolic CHF, COPD, and anemia. 2. HEART FAILURE WITH PRESERVED EJECTION FRACTION. 3. PAROXYSMAL ATRIAL FIBRILLATION: Maintaining sinus rhythm. 4. CORONARY ARTERY DISEASE: Recent cardiac cath at [facility] showed patent RCA stent and no significant obstructive CAD. 5. PULMONARY HYPERTENSION WITH RVSP 71 MMHG ON ECHOCARDIOGRAM 02/27/2018. PLAN: At this time, recommend continued diuresis for diastolic CHF. She is currently on IV Lasix 40 mg once daily and this can be changed to oral Lasix 40 mg once daily beginning tomorrow. She takes 20 mg Lasix daily at home and recommend discharging with increased dose of 40 mg once daily. Recommend addition of potassium supplementation with higher dose of Lasix. She is maintaining sinus rhythm, continue Sotalol 80 mg b.i.d. and Cardizem CD 240 mg once daily. Okay to hold Eliquis while undergoing workup for anemia, FOBT testing is pending at this time. Recent cardiac catheterization showed patent RCA stent and no intervention was performed. Outpatient Cardiology follow-up has been arranged for 03/14/2018 at 2:30 p.m. and at that time will likely schedule for a right heart catheterization for further evaluation of her pulmonary hypertension and shortness of breath, depending on her symptoms. Ms. Gonzalez was seen and examined with attending physician, Dr. Resendez, who agreed with the above. JOB NUMBER: [id number] MTDD
== END 2018-02-28 12:45 | disposition home or self-care (01) | DRG 293 ==
LOC: ER 09:38 → MEDSURG 12:18
PROVIDERS: ADMIT Internal Medicine; ATTEND Internal Medicine
DX: I50.9 Heart failure, unspecified (principal); D64.9 Anemia, unspecified; R05 Cough; I10 Essential (primary) hypertension; I48.91 Unspecified atrial fibrillation; J44.9 Chronic obstructive pulmonary disease, unspecified; I25.10 Atherosclerotic heart disease of native coronary artery without angina pectoris; E78.00 Pure hypercholesterolemia, unspecified; E11.9 Type 2 diabetes mellitus without complications; M19.90 Unspecified osteoarthritis, unspecified site
CPT/HCPCS: 36416; 71046; 80048; 80061; 82550; 82553; 82948; 83036; 83880; 84443; 84484; 85014; 85018; 85025; 85610; 85730; 90686; 93005; 93010; 93306; 94640; 94760; 96374; 99223; 99232; 99239; 99285; J1940; J7613

== ENCOUNTER 2018-03-24 14:53 | Emergency (ER) | payer MEDICARE ==
[2018-03-24] MEDS ORDERED: MORPHINE SULFATE 10 MG/ML VIAL IVP ONE (15:32)
[2018-03-24] MEDS ORDERED: CLINDAMYCIN 600MG/50ML PREMIX 600 MG/50 ML BAG IVPB ONE (15:32)
--- NOTE | 2018-03-24 15:32 | Emergency Department Record ---
History of Present Illness - General Chief complaint: Dental Stated complaint: DENTAL PAIN LT SIDE MOUTH Time Seen by Provider: 03/24/18 15:13 Source: Patient Mode of Arrival: Ambulatory Limitations: No limitations - History of Present Illness Initial comments: pt had a recent root canal last week. she now has increased facial swelling and pain. she called the dentist and he started her on amoxicillin yesterday morning but she has gotten worse. she has been taking motrin and norco. MD complaint: Tooth pain Onset/Timin -: Days(s) Severity: Severe Severity scale (1-10): 10 Quality: Sharp Consistency: Constant Improves with: None, NSAID, Other medication Worsens with: None Context- Dental: History of dental caries, Other (root canal) Associated Symptoms: Gum swelling, Toothache - Related Data Home Medications Medication Instructions Recorded Confirmed Last Taken Amoxicillin 500 mg PO BID 03/24/18 03/24/18 Unknown Bumetanide [Bumex] 1 mg PO DAILY 03/24/18 03/24/18 Unknown Hydrocodone/Acetaminophen 1 tab PO Q6H PRN 03/24/18 03/24/18 03/24/18 [Hydrocodone/Acetaminophen 10mg/325mg] Ibuprofen [Motrin 400Mg] 400 mg PO Q6H PRN 03/24/18 03/24/18 03/24/18 Spironolactone 12.5 mg PO DAILY 03/24/18 03/24/18 Unknown Previous Rx's Medication Instructions Recorded Acetaminophen [Tylenol 500Mg Tab] 1,000 mg PO Q8H PRN tablet 02/28/18 Metformin HCl [Glucophage Ir] 500 mg PO QHS tablet 02/28/18 Sotalol HCl [Betapace] 80 mg PO BID tablet 02/28/18 Tiotropium [place] [Spiriva] 1 cap IH DAILY #1 cap.w.dev 02/28/18 Clindamycin HCl 150 mg PO Q8HR #30 capsule 03/24/18 Clindamycin HCl [Cleocin HCl] 300 mg PO Q8HR #30 capsule 03/24/18 Allergies Allergy/AdvReac Type Severity Reaction Status Date / Time No Known Drug Allergies Allergy Verified 03/24/18 14:59 Travel Screening - Travel/Exposure Within Last 30 Days Have you traveled within the last 30 days?: No Review of Systems Reviewed: No additional complaints except as noted below Constitutional: Reports: As per HPI. Denies: Chills, Fever, Malaise, Night sweats, Weakness, Weight change Eyes: Reports: As per HPI. Denies: Eye discharge, Eye pain, Photophobia, Vision change ENT: Reports: As per HPI, Dental pain. Denies: Congestion, Ear pain, Epistaxis , Hearing loss, Throat pain Respiratory: Reports: As per HPI. Denies: Cough, Dyspnea, Hemoptysis, Stridor, Wheezes Cardiovascular: Reports: As per HPI. Denies: Arrhythmia, Chest pain, Dyspnea on exertion, Edema, Murmurs, Orthopnea, Palpitations, Paroxysmal nocturnal dyspnea, Rheumatic Fever, Syncope Endocrine: Reports: As per HPI. Denies: Fatigue, Heat or cold intolerance, Polydipsia, Polyuria Gastrointestinal: Reports: As per HPI. Denies: Abdominal pain, Constipation, Diarrhea, Hematemesis, Hematochezia, Melena, Nausea, Vomiting Genitourinary: Reports: As per HPI. Denies: Abnormal menses, Discharge, Dyspareunia, Dysuria, Frequency, Hematuria, Incontinence, Retention, Urgency Musculoskeletal: Reports: As per HPI. Denies: Arthralgia, Back pain, Gout, Joint swelling, Myalgia, Neck pain Skin: Reports: As per HPI. Denies: Bruising, Change in color, Change in hair/ nails, Lesions, Pruritus, Rash Neurological: Reports: As per HPI. Denies: Abnormal gait, Confusion, Headache, Numbness, Paresthesias, Seizure, Tingling, Tremors, Vertigo, Weakness Psychiatric: Reports: As per HPI. Denies: Anxiety, Auditory hallucinations, Depression, Homicidal thoughts, Suicidal thoughts, Visual hallucinations Hematological/Lymphatic: Reports: As per HPI. Denies: Anemia, Blood Clots, Easy bleeding, Easy bruising, Swollen glands Past Medical History - SOCIAL HISTORY Smoking Status: Former smoker Alcohol Use: None Drug Use: None - RESPIRATORY Hx Respiratory Disorders: Yes Hx COPD: Yes Hx Sleep Apnea: Yes Hx of CPAP: Yes Comment:: wears 2 liters at all times - CARDIOVASCULAR Hx Cardio Disorders: Yes Hx Cardiac Cath: Yes Hx Chest Pain: Yes (2014 (pericarditis)->diltiazem) Hx Hypertension: Yes Hx Coronary Artery Disease: Yes Hx Coronary Stent: Yes () Comment:: high cholesterol, right sided HF, pumonary hypertension - NEURO Hx Neuro Disorders: Yes Hx TIA: Yes - GI Hx GI Disorders: Yes Hx Reflux: Yes (1 year (epigastric pain)) - Hx Genitourinary Disorders: No - ENDOCRINE Hx Endocrine Disorders: Yes - MUSCULOSKELETAL Hx Musculoskeletal Disorders: Yes Hx Arthritis: Yes - PSYCH Hx Psych Problems: Yes Hx Anxiety: Yes Hx Depression: Yes - HEMATOLOGY/ONCOLOGY Hx Hematology/Oncology Disorders: Yes Hx Cancer: Yes (cervical and skin) Hx Chemotherapy: No Hx Radiation Therapy: No Family Medical History Any Significant Family History?: Yes Hx Heart Disease: Father, Brother/Sister, Grandparents *Heart Comment: in early 50's, stents, AAA, valve replacement Hx HTN: Father, Brother/Sister, Grandparents Hx Stroke: Brother/Sister Physical Exam - General General Appearance: Alert, Oriented x3, Cooperative, Mild distress - Head Head exam: Normal inspection Head exam detail: Other (l cheek swelling) - Eye Eye exam: Normal appearance, PERRL, EOMI Pupils: Normal accommodation - ENT ENT exam: Normal exam, Mucous membranes moist, Normal external ear exam, Normal orophraynx Ear exam: Normal external inspection. negative: External canal tenderness Nasal Exam: Normal inspection. negative: Discharge, Sinus tenderness Mouth exam: Normal external inspection, Tongue normal, Other (swelling and tenderness of l cheek) Teeth exam: Dental tenderness #. negative: Dental caries Throat exam: Normal inspection. negative: Tonsillar erythema, Tonsillar exudate - Neck Neck exam: Normal inspection, Full ROM. negative: Tenderness - Respiratory Respiratory exam: Normal lung sounds bilaterally. negative: Respiratory distress - Cardiovascular Cardiovascular Exam: Regular rate, Normal rhythm, Normal heart sounds - GI/Abdominal GI/Abdominal exam: Soft, Normal bowel sounds. negative: Tenderness - Rectal Rectal exam: Deferred - exam: Deferred - Extremities Extremities exam: Normal inspection, Full ROM, Normal capillary refill. negative: Tenderness - Back Back exam: Reports: Normal inspection, Full ROM. Denies: Muscle spasm, Rash noted, Tenderness - Neurological Neurological exam: Alert, CN II-XII intact, Normal gait, Oriented X3 - Psychiatric Psychiatric exam: Normal affect, Normal mood - Skin Skin exam: Dry, Intact, Normal color, Warm Course Vital Signs 03/24/18 14:59 Temperature 97.7 F Pulse Rate 71 Respiratory 20 Rate Blood Pressure 151/86 Pulse Ox 96 - Reevaluation(s) Reevaluation #1: 03/24/18 16:20 pt has increasing anemia. pt tells me she is in the process of having that worked up. she is on elequis. i have told her to stop the motrin since her hgb is falling and to contact her dr tomorrow. she tells me she has had a recent hemoccult but does not know what it showed. Medical Decision Making - Lab Data Result diagrams: 03/24/18 15:40 03/24/18 15:40 Disposition Disposition: Discharge Clinical Impression: Dental abscess Anemia Qualifiers: Anemia type: unspecified type Qualified Code(s): D64.9 - Anemia, unspecified Disposition: Home, Self-Care Condition: (1) Good Instructions: Dental Abscess (ED), Anemia (ED) Additional Instructions: follow up with dental physician tomorrow morning. stop amoxicillin. stop motrin. sleep elevated. return sooner if worse. Prescriptions: Clindamycin HCl 150 mg PO Q8HR #30 capsule Clindamycin HCl [Cleocin HCl] 300 mg PO Q8HR #30 capsule Forms: Patient Portal Access Quality - Quality Measures Quality Measures: N/A - Blood Pressure Screening Does Patient Have Any of the Following: No Blood Pressure Classification: Pre-Hypertensive BP Reading Systolic Measurement: 151 Diastolic Measurement: 86 Screening for High Blood Pressure: < Pre-Hypertensive BP, F/U Documented > [ [id number]] Pre-Hypertensive Follow-up Interventions: Follow-up with rescreen every year.
[2018-03-24 15:49] LABS: BASO % 0.3 % (0-6); EOS % 3.1 % (0-6); GRAN % 57.5 % (47-80); HEMATOCRIT 30.5 % (35.0-47.0); HEMOGLOBIN 8.8 gm/dl (11.6-16.0); LYMPH % 30.6 % (16-45); MEAN CELL VOLUME 84.3 fl (81-97); MEAN CORPUSCULAR HEMOGLOBIN 24.3 pg (27-33); MEAN CORPUSCULAR HGB CONC 28.9 g/dl (32-36); MEAN PLATELET VOLUME 9.1 fl (7.4-10.4); MONO % 8.5 % (0-9); PLATELET COUNT 357 K/uL (130-400); RED BLOOD COUNT 3.62 M/uL (3.80-5.40); RED CELL DISTRIBUTION WIDTH 15.3 % (11.5-14.5); WHITE BLOOD COUNT W/O DIFF 9.5 K/uL (4.2-12.2)
[2018-03-24 16:01] LABS: BLOOD UREA NITROGEN 22 mg/dL (8-23); CREATININE 0.9 mg/dL (0.5-0.9); EST GLOMERULAR FILTRATION RATE > 60 mL/min
[2018-03-24 16:04] LABS: GLUCOSE,RANDOM 147 mg/dL (74-109)
== END 2018-03-24 16:50 | disposition home or self-care (01) ==
LOC: ER 14:53
DX: K04.7 Periapical abscess without sinus (principal); D64.9 Anemia, unspecified; J44.9 Chronic obstructive pulmonary disease, unspecified; I10 Essential (primary) hypertension; Z79.01 Long term (current) use of anticoagulants; Z99.81 Dependence on supplemental oxygen; Z87.891 Personal history of nicotine dependence
CPT/HCPCS: 99284 ×2; 96365; 96375; 85025; 80048; J2270